=== PATIENT | male | born 2000 | race Caucasian/White ===

== ENCOUNTER 2025-02-07 04:08 | Emergency (ER) | payer SELFPAY ==
[~2025-02-07] VITALS: Ht 175.3 cm; Wt 68.0 kg
--- NOTE | 2025-02-07 04:19 | NUR ---
PT GIVEN URINAL TO COLLECT URINE SAMPLE.
--- NOTE | 2025-02-07 04:28 | ERN ---
ED Note History of Present Illness Stated Complaint: ABD PAIN, VOMITING BLOOD Chief Complaint: Hematemesis/Vomiting Blood Time Seen by MD: 04:10 Dictation: This is a 24-year-old male who presented to the emergency room with complaints of lower abdominal pain radiating to left upper quadrant area. He also reported that he has been vomitings in the emesis has a blood with clots. He has had 4 such episodes. He apparently started having panic attack-like symptoms and was hyperventilating in the triage. He denies any blood in the stool Temperature 97.8 pulse 63 respirations 28 blood pressure 135/70 with a pulse oximetry of 99% on room air Allergies: Coded Allergies: No Known Allergies (Unverified Allergy, Unknown, 02/07/25) Home Meds Active Scripts Ondansetron (Ondansetron Odt) 4 Mg Tab.rapdis, 4 MG PO Q6HPRN PRN for nausea, #16 TAB 0 Refills Prov:CHUCK SEALS MD 02/07/25 Past Medical History Past Medical History: Other Additional Past Medical Hx: PANIC ATTACKS Surgical History: None RN Note Reviewed/Agreed w/PFSH: Yes Review of System Dictation Constitutional: Negative for fever,chills, and weight loss Eyes: Negative for injury, pain,redness, and discharge ENT: Negative for injury,pain or swelling Cardiovascular: Negative for chest pain, palpitations, and edema Respiratory: Negative for shortness of breath, cough, and wheezing, Abdomen/GI: Positive for abdominal pain and hematemesis but denied nausea, vomiting, diarrhea, and constipation Back: Negative for injury and pain : Negative for injury, bleeding and discharge MS/Extremity: Negative for injury and deformity Skin: Negative for rash, and discoloration Neuro: Negative for headache, weakness, numbness, tingling, and seizure Psych: Negative for suicide ideation, homicidal ideation, and hallucinations Initial Vital Sign VS Vital Signs Date Time Temp Pulse Resp B/P (MAP) Pulse Ox O2 Delivery O2 Flow Rate FiO2 02/07/25 04:09 97.9 63 28 135/70 99 Room Air 02/07/25 04:19 0 21 Physical Exam Dictation General: awake, alert, NAD Head/Face: Normocephalic, atraumatic Eyes: PERRL, EOMI, vision at baseline ENT: oral cavity clear, TMs clear, no signs of infection Neck: Trachea midline, supple, no nuchal rigidity Cardiovascular: RRR, normal S1/S2, No MRGs, no JVD Respiratory: CTAB, no respiratory distress, No rales or wheezes Abdomen: Soft, non-tender, non-distended, normal bowel sounds, no guarding or rebound. Skin: Warm, dry, normal turgor, no rash MS/Extremity: Pulses equal, no cyanosis, neurovascular intact, FROM Neuro: COAx4, GCS 15, strength 5/5, CN 2-12 intact, normal cerebellar exam, normal gait, Psych: Normal behavior, mood, and affect normal Extremities-trace edema without any palpable cords, Homans sign is negative Results (Laboratory/Radiology) Laboratory/Radiology Laboratory Tests Test 02/07/25 04:31 White Blood Count 8.8 K/uL (4.8-10.8) Red Blood Count 5.10 MIL/uL (4.50-6.20) Hemoglobin 15.6 g/dL (14.0-18.0) Hematocrit 43.7 % (42-54) Mean Corpuscular Volume 85.7 fL (79-99) Mean Corpuscular Hemoglobin 30.6 pg (27.0-33.0) Mean Corpuscular Hemoglobin Concent 35.7 g/dL (32.0-36.0) Red Cell Distribution Width 12.1 % (11.0-15.5) Platelet Count 256 K/uL (130-400) Mean Platelet Volume 9.9 fL (7.5-10.5) Immature Granulocyte % (Auto) 0.3 % (0-1) Neutrophils (%) (Auto) 71.1 % (40.0-77.0) Lymphocytes (%) (Auto) 20.2 % (21.0-51.0) L Monocytes (%) (Auto) 7.4 % (3.0-13.0) Eosinophils (%) (Auto) 0.7 % (0.0-8.0) Basophils (%) (Auto) 0.3 % (0.0-5.0) Neutrophils # (Auto) 6.2 K/uL (1.8-7.7) Lymphocytes # (Auto) 1.8 K/uL (1.0-4.8) Monocytes # (Auto) 0.7 K/uL (0.1-1.0) Eosinophils # (Auto) 0.06 K/uL (0.00-0.70) Basophils # (Auto) 0.03 K/uL (0.00-0.20) Absolute Immature Granulocyte (auto 0.03 K/uL (0-1) Nucleated Red Blood Cells 0.0 % (0.0-0.19) Sodium Level 139 mmol/L (136-145) Potassium Level 3.6 mmol/L (3.5-5.1) Chloride Level 103 mmol/L (101-111) Carbon Dioxide Level 27 mmol/L (21-32) Blood Urea Nitrogen 12 mg/dL (7-18) Creatinine 1.1 mg/dL (0.5-1.3) Glomerular Filtration Rate Calc 95 mL/min (>90) Random Glucose 138 mg/dL (70-105) H Total Calcium 8.9 mg/dL (8.5-10.1) Lipase 29 U/L (16-77) Labs Reviewed?: Yes ED Course ED Course Orders Procedure Category Date Status Time Cbc With Differential LAB 02/07/25 Complete 04:11 Occult Blood Stool LAB 02/07/25 Logged Single Only 04:11 0.9%Nacl 1000ml (Ns PHA 02/07/25 In Process 1000ml) 04:30 Ondansetron 4mg Inj PHA 02/07/25 Complete (Zofran 4mg Inj) 04:30 Pantoprazole 40mg Inj PHA 02/07/25 Complete (Protonix 40mg Inj 04:30 Basic Metabolic Panel LAB 02/07/25 Complete 04:11 Drug Screen Urine LAB 02/07/25 Logged 04:11 Morphine 2mg Syg PHA 02/07/25 Complete (Morphine 2mg Syg) 05:00 0.9% Nacl 500ml PHA 02/07/25 Complete Iv.Soln (Ns 500ml 06:00 Morphine 4mg Syg PHA 02/07/25 Complete (Morphine 4mg Syg) 06:00 Abd 1vw RAD 02/07/25 Resulted 07:33 Lipase LAB 02/07/25 Complete 07:49 Current Medications Medications (Trade) Dose Ordered Sig/Luke Route PRN Reason Start Time Stop Time Status Last Admin Dose Admin Morphine Sulfate (morPHINE 2MG SYG) 2 mg ONCE ONCE IVP 02/07/25 05:00 02/07/25 05:01 DC 8/23/25 04:45 Morphine Sulfate (morPHINE 4MG SYG) 4 mg ONCE ONCE IVP 02/07/25 06:00 02/07/25 06:01 DC 02/07/25 06:11 Ondansetron HCl (zoFRAN 4MG INJ) 4 mg ONCE ONCE IVP 02/07/25 04:30 02/07/25 04:31 DC 02/07/25 04:38 Pantoprazole Sodium (PROTonix 40MG INJ) 80 mg ONCE ONCE IVP 02/07/25 04:30 02/07/25 04:31 DC 02/07/25 04:36 Sodium Chloride 500 ml @ 0 mls/hr ONCE ONCE IV 02/07/25 06:00 02/07/25 06:01 DC 02/07/25 06:30 Sodium Chloride 1,000 ml @ 125 mls/hr ONCE ONCE IV 02/07/25 04:30 02/07/25 12:29 02/07/25 04:39 Vital Signs Date Time Temp Pulse Resp B/P (MAP) Pulse Ox O2 Delivery O2 Flow Rate FiO2 02/07/25 07:36 97.7 53 16 115/53 100 Room Air* 0 21 02/07/25 07:00 60 15 118/70 98 Room Air* 0 21 02/07/25 05:51 59 17 136/65 100 Room Air* 0 21 02/07/25 04:19 98.2 59 20 150/90 100 Room Air* 0 21 02/07/25 04:09 97.9 63 28 135/70 99 Room Air We will perform diagnostic labs, advanced imaging and administer medications according to the patient's complaint. Once the results are available, will review and personally interpreted the labs to rule out any acute life- threatening emergency the trach require immediate intervention and treatment. I will then re-evaluate the patient after treatment and diagnostic exams have return to determine whether the patient requires any further testing, can safely be discharged home or need further admission to hospital for additional treatment and evaluation. f Medical Decision Making MDM Differential diagnosis: Food poisoning, gastritis, cholecystitis, enterocolitis Rationale: Tests considered and ordered secondary to shared decision making include: Previous outside records reviewed: Old ER visits. Risk of complication and/or morbidity or mortality of patient management: None Medications-Per medication reconciliation Need for hospitalization: Patient does not meet criteria for hospitalization. Need for emergency major/minor surgery: No There are no social concerns with this patient. Prescription drug management Prescriptions will include symptomatic care Patient's prior external medical records from other ER visits were reviewed by me as indicated. Prior testing and results from previous visits were reviewed. Prior tests were taken into account with medical decision making and resource utilization, independent historian/historians were used to obtain complete medical history. I independently interpreted the test that were performed, results were reviewed by me and considered findings on radiology if ordered. Medical management and examination interpretation discussions were had by me with other qualified healthcare professionals as indicated for the patient's care. CC: vomiting, generalized abdominal pain Comorbidities: panic attacks Limitations: uninsured Ddx: food poisoning, gastritis, gastroenteritis, obstruction, dehydration, electrolyte abnormalities, other VSS abd soft, non tender, non distended CBC no leukocytosis, electrolytes stable. KUB no signs of obstruction Patient received IV fliuds, IV morphine (with multiple re-evaluations in the ED), anti-emetics. Low suspoicion for life threats, obstruction, sepsis, surgical pathology. Likely food toxicity. Re-evluation, pain improved, PO tolerant. Non-toxic. Plan: DC to PCP f/u. Prescription for zofran. OTC meds recommended. Problem List Problem List: (1) Food poisoning (2) Nausea & vomiting DX & DISP Disposition: Discharge Departure Impression: Primary Impression: Food poisoning Additional Impression: Nausea & vomiting Condition: Stable Scripts Ondansetron (Ondansetron Odt) 4 Mg Tab.rapdis 4 MG PO Q6HPRN PRN for nausea, #16 TAB 0 Refills Prov: CHUCK SEALS MD 02/07/25 Additional Instructions: Your symptoms are consistent with food toxicity. This will often clear on its own with time. Your vital signs are stable. Your labwork (CBC, BMP, lipase) is unremarkable. Your x-ray is unremarkable. You received IV fluids, IV pain control, and IV anti-emetics here in the ED. I've prescribed zofran dissolvable tabs to use as needed for nausea and vomiting. You can take this up to 3 times per day for the next 48 hours as needed. Drink plenty of liquids. Choose an electrolyte solution such as Gatorade or Missael. Start with bananas, applesauce, rice, and toast. Advance your diet as tolerated. Follow up with your doctor in 48 hours if your symptoms don't improve. Return to the ED as needed. Referrals: NONE (PCP) CHUCK SEALS MD Feb 07, 2025 04:28 WHIT CHAVEZ DO Feb 07, 2025 07:52
[2025-02-07 04:38] LABS: IMMATURE GRANULOCYTE ABSOLUTE 0.03 K/uL (0-1); NUCLEATED RED BLOOD CELLS 0.0 % (0.0-0.19); PLATELET COUNT (AUTO) 256 K/uL (130-400); RED BLOOD CELL COUNT(AUTO) 5.10 MIL/uL (4.50-6.20); RED CELL DISTRIBUTION WIDTH 12.1 % (11.0-15.5); WHITE BLOOD COUNT (AUTO) 8.8 K/uL (4.8-10.8)
[2025-02-07] MEDS: 0.9%NACL 1000ML 1,000 ML IV ONE (04:39)
[2025-02-07 04:45] LABS: CREATININE 1.1 mg/dL (0.5-1.3); GLOMERULAR FILTR. RATE CALC 95.0 mL/min (>90); GLUCOSE,RANDOM 138.0 mg/dL (70-105); SODIUM SERUM 139.0 mmol/L (136-145); UREA NITROGEN, BLOOD 12.0 mg/dL (7-18)
--- NOTE | 2025-02-07 05:49 | NUR ---
PER DR. SEALS 1000 NS ORDER IS TO BE WIDE OPEN FOR A BOLUS NOT RAN AT 125MLS ORDERED.
[2025-02-07] MEDS: 0.9% NACL 500ML IV.SOLN 500 ML IV ONE (06:30)
[2025-02-07] MEDS ORDERED: ONDA-243 PO (06:50)
--- NOTE | 2025-02-07 07:08 | NUR ---
REPORT GIVEN TO LESLIE RN AT THIS TIME
--- NOTE | 2025-02-07 08:20 | HMCIMG ---
EXAM: CR Abdomen, 1 View. CLINICAL HISTORY: abd pain COMPARISON: None provided. FINDINGS: BOWEL: The bowel gas pattern is within normal limits. PERITONEUM/SOFT TISSUES: No free air evident. No pathologic appearing calcification. BONES: No aggressive appearing osseous lesion seen. IMPRESSION: The bowel gas pattern is within normal limits. /[place]
--- NOTE | 2025-02-07 09:02 | NUR ---
DC PATIENT WAS DC'D BY DR KATHY Brown DC'D PATIENTS IV WITH CATH STILL INTACT AND APPLIED 2X2 GAUZE WITH COBAN, I EXPLAINED TO PATIENT TO FOLLOW UP WITH PCP, PROVIDED INFO BASED ON DIAGNOSIS, EXPLAINED NEW PRESCRIPTIONS AND ANSWERED ANY FOLLOW UP QUESTIONS PATIENT AMBULATED OUT OF ED, NO COMPLICATIONS
[2025-02-07 09:03] VITALS: BP 127/61; PULSE 56; RESP 15; TEMP 98; O2SAT 100
== END 2025-02-07 09:05 | disposition home or self-care (01) ==
LOC: EDH 04:08
DX: A05.9 Bacterial foodborne intoxication, unspecified (principal); Z79.899 Other long term (current) drug therapy
CPT/HCPCS: 99285; 96374; 96361; 96375; 80048; 83690; 85025; 36415; 74018; 96376; J2270 ×2; J7030; J2405; J2470